=== PATIENT | male | born 1955 ===

== ENCOUNTER 2025-04-03 07:15 | Day surgery (SDC) | payer BC, SELFPAY ==
[2025-04-03] VITALS (15 sets, daily range): BP systolic 117–145; BP diastolic 70–97; BMI 27.5
[2025-04-03] MEDS: NSS 276 ML IV (07:51)
[2025-04-03 08:03] LABS: Glucose - Point of Care 151 mg/dl (70-99)
[2025-04-03 08:43] LABS: Hematocrit 44.3 % (39.0-52.0); Hemoglobin 15.2 g/dL (13.0-18.0); Mean Corp Hgb Conc. 34.3 g/dL (33.0-37.0); Mean Corpuscular Hgb 30.3 pg (27.0-31.0); Mean Corpuscular Volume 88.4 fL (80.0-94.0); Mean Platelet Volume 9.6 fL (7.4-10.4); Platelet Count 175 10^3/uL (130-400); Red Blood Cell Count 5.01 10^6/uL (4.70-6.10); Red Cell Dist. Width 12.7 % (11.5-14.5); White Blood Cell Count 6.4 10^3/uL (4.8-10.8)
[2025-04-03 08:51] LABS: NT-proBNP < 20.0 pg/ml
[2025-04-03 10:20] LABS: ACT-LR - POC 285 Seconds (116-155)
[2025-04-03 10:44] LABS: ACT-LR - POC 342 Seconds (116-155)
[2025-04-03 11:22] LABS: Blood Urea Nitrogen 18 mg/dl (9-20); Calcium 8.2 mg/dl (8.4-10.2); Carbon Dioxide 20 mmol/L (22-30); Chloride 109 mmol/L (98-107); Estimated Creatinine Clearance 111 ml/min; Glucose 142 mg/dl (70-99); Potassium 3.8 mmol/L (3.5-5.1); Sodium 138 mmol/L (135-145); eGFR > 60.00
--- NOTE | 2025-04-03 11:23 | ITS.CL.PN ---
Addendum entered and electronically signed by Volodymyr Chacon MD 04/06/25 14:22:
Correction to Procedures performed. Section should read:
PROCEDURE(S)
1. left heart catheterization
2. coronary angiography
3. IVUS LAD
4. PCI with SHANT to LAD
Original Note:
In Service Coordinator - Procedure Note
Procedure
Procedure Note:
CARDIAC CATHETERIZATION REPORT
Date of Procedure: 04/03/2025
Referring: Dr. Kelvin Ortega MD
Indication: worsening angina
PROCEDURE(S)
1. left heart catheterization
2. coronary angiography
3. iFR LAD
4. PCI with SHANT to LAD
ACCESS: 6F right radial artery (closure: radial band)
CATHETERS
1. 6F JR4
2. 6F JL4
3. 6F EBU3.75 guide
MODERATE SEDATION: 60 minutes of moderate sedation was utilized. An independent medical care manager was present to assist with and help manage the patient's level of consciousness and physiologic status.
HEMODYNAMIC DATA
LV 142/10 (EDP 23) mmHg
AO 124/71 (mean 89) mmHg
CORONARY ANGIOGRAPHY
Dominance: right
LM: Large with mild distal vessel tapering
LAD: Large vessel giving rise to a moderate caliber D1 and moderate caliber D2. There is angiographically mild disease in the true LAD ostium. There is a 90% stenosis in the mid vessel spanning the takeoff of D2. There is long segment mild disease
in the ostial to proximal aspect of the D2.
LCx: Large caliber vessel giving rise to a large high rising OM1 and small LPL branches. There is moderate disease in the true proximal circumflex before the takeoff of the OM1 and a focal 40% stenosis in the mid circumflex.
RCA: Moderate caliber vessel giving rise to a small RPDA and small RPL branch. There is mild to moderate nonobstructive disease.
PCI with SHANT to mid-LAD
The decision was made to proceed with PCI to the LAD. Heparin was administered to achieve ACT greater than 300. Runthrough coronary wires were placed in the distal LAD and the D2 branch. Initial lesion preparation was performed with a 2.0 balloon
followed by IVUS demonstrating a 3.0 mm distal reference vessel diameter and a 3.25 mm proximal reference vessel diameter with minimal calcification. Stenting was performed with a 3.0 x 30 mm Jamal frontier drug-eluting stent deployed at 12 nitza
followed by removal of the jailed D2 wire and rewiring of the D2 branch through stent struts. There was noted to be moderate ostial pinching of the D2 but JOEL-3 flow. Post dilation was then performed with a 3.0 NC taken to 16 nitza distal to the D2
bifurcation and a 3.25 x 8 mm NC taken to 18 nitza proximal to the bifurcation back to the proximal stent edge. IVUS was performed and demonstrated mild underexpansion focally in a portion of the vessel distal to the diagonal takeoff. This was further
postdilated with a 3.25 NC taken to 16 nitza. Final angiographic result was excellent with full stent expansion, apposition, and no evidence of dissection. There remained JOEL-3 flow in the jailed diagonal branch. The patient was loaded with 600 mg of
Plavix and a TR band placed for radial artery hemostasis.
RADIATION: dose 689 mGy; DAP 41.3 Gy*cm2; fluoroscopy time 14.5 min
CONCLUSIONS
1. Coronary artery disease as described with high-grade mid LAD stenosis. This the prior proximal LAD stent from 2013 is widely patent.
2. Successful IVUS guided PCI of the mid LAD with a 3.0 x 30 mm Jamal frontier drug-eluting stent postdilated to 3.25 mm proximally
3. Mildly elevated LV filling pressure and no aortic stenosis
RECOMMENDATIONS
1. Triple therapy for 1 week with aspirin, Plavix, and Eliquis followed by Plavix and Eliquis only for 6 months. At 6 months Plavix may be substituted for aspirin. At 12 months antiplatelet therapy can be stopped if patient remains on
anticoagulation.
2. Aggressive secondary prevention of coronary artery disease. Increase statin to high intensity.
Copy to: Dr. Kelvin Ortega MD (integrated campaign manager); Dr. Janusz Mendoza DO (PCP)
Signed: Volodymyr Chacon MD, PhD
[2025-04-03 11:34] LABS: Glucose - Point of Care 128 mg/dl (70-99)
--- NOTE | 2025-04-03 14:46 | W.PN.UPDATE ---
Update Note
Progress Note Update
69 yo WM s/p PCI LAD (same day). He had some initial stretch pain which resolved 5 min after procedure, denies sob,, brigido diet, voiding, EKG SR no ST changes, R rad site c/d/i. He will be on triple therapy ASA/Plavix/Eliquis for 1 week then stop ASA.
He will increase rosuvastatin to 20mg daily. Cardiac rehab c/s. Activity restrictions reviewed. He will hold [employer] until Sunday. He will f/u Dr. Ortega in 2-4 weeks. He is for d/c home after 4pm.
== END 2025-04-03 16:00 | disposition home or self-care (01) ==
LOC: CATH 07:15
PROVIDERS: ATTENDING PHYSICIAN Student in an Organized Health Care Education/Training Program
DX: I25.110 Atherosclerotic heart disease of native coronary artery with unstable angina pectoris (principal); Z95.5 Presence of coronary angioplasty implant and graft; Z79.02 Long term (current) use of antithrombotics/antiplatelets; Z79.82 Long term (current) use of aspirin; Z79.01 Long term (current) use of anticoagulants; Z79.899 Other long term (current) drug therapy; Z79.4 Long term (current) use of insulin
CPT/HCPCS: 92978; 99153; 99152; 80048; 82962; 83880; 85027; 85347; 93005; 93458; C1725; C1753; C1874; C1894; C9600; Q9967